=== PATIENT | female | born 1980 | race Hispanic/Latino ===

== ENCOUNTER 2019-02-20 10:30 | Outpatient (AMBR) | payer MEDICAID, SELFPAY ==
--- NOTE | 2019-02-03 11:49 | PT.ODAYNRPT ---
PT Outpatient Daily Note Date of Service: February 03, 2019 OP Daily Note Visit Reasons: leg pain Outpatient Physical Therapy Treatment Date: 02/03/19 Subjective: pt states being sore from weekend activities which would have to take it easy today. Objective: see flow sheet. Assessment: the balance board exercises were withheld today per pt's requuest due to soreness. added other balance exercises on normal flat ground in which she still have difficulty. pt's L foot seemed to be bothering her more today but both were still sore. Plan: continue POC per PT. Length of Time (minutes) of Treatment: 30 Minutes Office Procedures PT Procedures PT Date of Service: 02/03/19 Therapeutic Exercise 30 minutes: Yes
--- NOTE | 2019-02-20 16:31 | PT.ODAYNRPT ---
PT Outpatient Daily Note Date of Service: February 20, 2019 OP Daily Note Pediatric or Adult Patient: Adult PT >13 Visit Reasons: leg pain Outpatient Physical Therapy Treatment Date: 02/20/19 Subjective: Patient was complaining of pain on her heel due to chores that she did at home. Assessment: Patient was supposed to have steroid shot this AM but patient got afraid and refused to do it today. She said she will try next time. Patient refused waddle board exercise today but participated in other level surface training and bicycle. Plan: To continue POC toward goals. Pain Present Currently: Yes Length of Time (minutes) of Treatment: 30 Minutes Office Procedures PT Procedures PT Date of Service: 02/03/19 Therapeutic Exercise 30 minutes: Yes
== END 2019-02-20 11:17 | disposition home or self-care (01) ==
PROVIDERS: PCP Nurse Practitioner Family; Referring Provider Nurse Practitioner Family; Visit Provider Podiatrist
DX: M76.72 Peroneal tendinitis, left leg (principal); M76.61 Achilles tendinitis, right leg; M62.81 Muscle weakness (generalized); M79.672 Pain in left foot; M79.671 Pain in right foot; I10 Essential (primary) hypertension
CPT/HCPCS: 97110